=== PATIENT | female | born 1975 | race Caucasian/White ===

== ENCOUNTER 2017-04-17 16:29 | Emergency (ER) | payer MEDICAID ==
[~2017-04-17] VITALS: Wt 83.5 kg
[~2017-04-17 16:29] MED LIST: HYDR-3498 PO; ZOF8 PO
[2017-04-17] MEDS ORDERED: SOD CHLORIDE 0.9% 1,000 ML IV STA (17:04)
[2017-04-17] MEDS ORDERED: ONDANSETRON 4 MG INJ IV STA (17:04)
[2017-04-17] MEDS ORDERED: morphine 4 MG/ML VIAL IV STA (17:04)
[2017-04-17 17:37] LABS: ADD UMIC YES; URINE BILIRUBIN (Dip) NEGATIVE (NEGATIVE); URINE BLOOD (Dip) 3+ (NEGATIVE); URINE COLOR YELLOW (YELLOW); URINE GLUCOSE (Dip) NEGATIVE (NEGATIVE); URINE KETONES (Dip) NEGATIVE (NEGATIVE); URINE LEUKOCYTE ESTERASE (Dip) 1+ (NEGATIVE); URINE NITRITE (Dip) NEGATIVE (NEGATIVE); URINE TOTAL PROTEIN (Dip) TRACE (NEGATIVE); URINE UROBILINOGEN (Dip) 1.0 E.U./dL (0.1-1.0)
[2017-04-17 17:42] LABS: ADD SCAN DIFF NO
[2017-04-17 17:43] LABS: BASOPHILS % 0.2 % (0.0-2.0); EOSINOPHILS # 0.2 10^3/ul (0.0-0.5); EOSINOPHILS % 1.5 % (0.0-7.0); HEMATOCRIT 41.3 % (37.0-47.0); HEMOGLOBIN 13.7 g/dl (12.0-16.0); LYMPHOCYTES # 1.8 10^3/ul (0.8-2.9); LYMPHOCYTES % 11.2 % (15.0-51.0); MEAN CORPUSCULAR HGB CONC 33.2 g/dl (32.0-37.0); MEAN CORPUSCULAR VOLUME 90.6 fl (82.0-101.0); MEAN PLATELET VOLUME 10.6 fl (7.4-10.4); MONOCYTE # 0.7 10^3/ul (0.3-0.9); MONOCYTES % 4.4 % (0.0-11.0); NEUTROPHIL # 13.4 10^3/ul (1.6-7.5); NEUTROPHILS % 82.2 % (39.0-77.0); PLATELET COUNT 278 10^3/UL (140-415); RED BLOOD COUNT 4.56 10^6/ul (4.20-5.40); RED CELL DISTRIBUTION WIDTH 14.6 % (11.5-14.5); WHITE BLOOD COUNT 16.2 10^3/ul (4.8-10.8)
[2017-04-17 17:59] LABS: BACTERIA,URINE MANY; SQUAMOUS EPITHELIAL CELL,UR MANY
[2017-04-17 18:03] LABS: ALBUMIN/GLOBULIN RATIO 1.23
[2017-04-17 18:04] LABS: CALCIUM 9.6 mg/dl (8.4-10.2); CREATININE 0.69 mg/dl (0.44-1.00); POTASSIUM 3.7 mmol/L (3.5-5.1)
[2017-04-17 18:05] LABS: ALBUMIN 4.7 g/dl (3.3-4.9); BILIRUBIN,INDIRECT 0.1 mg/dl (0-1.1); BILIRUBIN,TOTAL 0.1 mg/dl (0.2-1.3); TOTAL PROTEIN 8.5 g/dl (6.1-8.1)
--- NOTE | 2017-04-17 18:08 | ERD ---
ER Documentation Chief Complaint Date/Time DATE: 04/17/17 TIME: 18:05 Chief Complaint LEFT UPPER ABD PAIN, NAUSEA, ONSET 4 DAYS HPI Patient is a 41-year-old female with a past medical history of gallstones who presents to the ED with epigastric and right upper quadrant pain 4 days. She states that she has had this pain in the past and states that it is possibly due to her gallstones. She complains of nausea with no vomiting. Her last bowel movement was this morning. She states that the pain is a 10 out of 10. She has taken ibuprofen for her symptoms this morning. She denies headache or dizziness. Denies chest pain, cough, shortness of breath or difficulty breathing. Denies leg pain or leg swelling. Denies recent surgeries or recent travel. Denies fever or chills. ROS All systems reviewed and are negative except as per history of present illness. Medications Home Meds Active Scripts Ondansetron (Ondansetron Odt) 4 Mg Tab.rapdis, 4 MG PO Q6H Y for NAUSEA AND/OR VOMITING, #10 TAB Prov:MARIANNE KUNZ PA-C 04/17/17 Hydrocodone/Acetaminophen ([place] 5-325 Tablet) 1 Each Tablet, 1 TAB PO Q6H Y for PAIN, #7 TAB Prov:MARIANNE KUNZ PA-C 04/17/17 Nitrofurantoin Monohyd Macrocr* (Macrobid*) 100 Mg Capsr, 100 MG PO BID for 14 Days, CAP Prov:MARIANNE KUNZ PA-C 04/17/17 Ondansetron Hcl* (Zofran* ODT) 8 mg -ODT Tab.disper, 8 MG PO Q6 Y for NAUSEA AND /OR VOMITING, #10 TAB Prov:KRISTI CLOUD MD 09/22/15 Hydrocodone Bit-Acetaminophen* ([place]*) 5-325 Mg Tab, 1 TAB PO Q6 Y for PAIN, # 16 TAB Prov:KRISTI CLOUD MD 09/22/15 Allergies Allergies: Coded Allergies: No Known Drug Allergy (Verified Allergy, Unknown, 03/30/08) PMhx/Soc History of Surgery: No Anesthesia Reaction: No Hx Neurological Disorder: No Hx Respiratory Disorders: No Hx Cardiac Disorders: No Hx Psychiatric Problems: No Hx Miscellaneous Medical Probl: No Hx Alcohol Use: No Hx Substance Use: No Hx Tobacco Use: No Smoking Status: Never smoker FmHx Family History: No coronary disease, No diabetes, No other Physical Exam Vitals Vital Signs Date Time Temp Pulse Resp B/P Pulse Ox O2 Delivery O2 Flow Rate FiO2 04/17/17 19:21 98.3 72 16 128/63 100 Room Air 04/17/17 16:34 97.1 62 17 132/63 100 Physical Exam GENERAL: Well-developed, well-nourished female. Appears in mild distress. HEAD: Normocephalic, atraumatic. EYES: Pupils are equally reactive bilaterally. EOMs grossly intact. No conjunctival erythema. ENT: Moist mucous membranes. No uvula deviation. No kissing tonsils. No exudates. NECK: Supple. No lymphadenopathy or thyromegaly. No meningismus. negative kernig. negative brudinski. LUNG: Clear to auscultation bilaterally. No rhonchi, wheezing, rales or coarse breath sounds. HEART: Regular rate and rhythm. No murmurs, rubs or gallops. ABDOMEN: No scars, ecchymosis or rashes noted. Soft,and nondistended. Positive bowel sounds in all four quadrants. No rebound tenderness, no guarding. (-) McBurneys point tenderness. No CVA tenderness. tenderness in epigastric and ruq. BACK: No midline tenderness. Extremities: Equal pulses bilaterally. No peripheral clubbing, cyanosis or edema. No unilateral leg swelling. NEUROLOGIC: Alert and oriented. Moving all four extremities. 5/5 strength in all extremities. Normal speech. Steady gait. SKIN: Normal color. Warm and dry. No rashes or lesions. Capillary refill < 2 seconds Result Diagram: 04/17/17 1730 04/17/17 1730 Results 24 hrs Laboratory Tests Test 04/17/17 17:10 04/17/17 17:30 Urine Color YELLOW Urine Clarity SLIGHTLY CLOUDY Urine pH 6.5 Urine Specific [place] 1.020 Urine Ketones NEGATIVE Urine Nitrite NEGATIVE Urine Bilirubin NEGATIVE Urine Urobilinogen 1.0 E.U./dL Urine Leukocyte Esterase 1+ Urine Microscopic RBC 10-25/HPF Urine Microscopic WBC 10-25/HPF Urine Squamous Epithelial Cells MANY Urine Bacteria MANY Urine Hemoglobin 3+ Urine Glucose NEGATIVE% Urine Total Protein TRACE White Blood Count 16.210^3/ul Red Blood Count 4.5610^6/ul Hemoglobin 13.7g/dl Hematocrit 41.3% Mean Corpuscular Volume 90.6fl Mean Corpuscular Hemoglobin 30.0pg Mean Corpuscular Hemoglobin Concent 33.2g/dl Red Cell Distribution Width 14.6% Platelet Count 33047^3/UL Mean Platelet Volume 10.6fl Neutrophils % 82.2% Lymphocytes % 11.2% Monocytes % 4.4% Eosinophils % 1.5% Basophils % 0.2% Nucleated Red Blood Cells % 0.0/100WBC Neutrophils # 13.410^3/ul Lymphocytes # 1.810^3/ul Monocytes # 0.710^3/ul Eosinophils # 0.210^3/ul Basophils # 0.010^3/ul Nucleated Red Blood Cells # 0.010^3/ul Sodium Level 140mmol/L Potassium Level 3.7mmol/L Chloride Level 102mmol/L Carbon Dioxide Level 28mmol/L Anion Gap 14 Blood Urea Nitrogen 15mg/dl Creatinine 0.69mg/dl Glucose Level 133mg/dl Calcium Level 9.6mg/dl Total Bilirubin 0.1mg/dl Direct Bilirubin 0.00mg/dl Indirect Bilirubin 0.1mg/dl Aspartate Amino Transf (AST/SGOT) 136IU/L Alanine Aminotransferase (ALT/SGPT) 140IU/L Alkaline Phosphatase 108IU/L Total Protein 8.5g/dl Albumin 4.7g/dl Globulin 3.80g/dl Albumin/Globulin Ratio 1.23 Lipase 67U/L Current Medications Medications (Trade) Dose Ordered Sig/Khris Route PRN Reason Start Time Stop Time Status Last Admin Dose Admin Sodium Chloride (NS) 1,000 ml @ 1,000 mls/hr Q1H STAT IV 04/17/17 17:04 04/17/17 18:03 DC 04/17/17 17:22 Morphine Sulfate (morphine) 4 mg ONCE STAT IV 04/17/17 17:04 04/17/17 17:06 DC 04/17/17 17:22 Ondansetron HCl (Zofran Inj) 4 mg ONCE STAT IV 04/17/17 17:04 04/17/17 17:06 DC 04/17/17 17:22 Procedures/MDM ER COURSE: I kept the patient and/or family informed of laboratory and diagnostic imaging results throughout the emergency room course. EKG, MONITORS, & DIAGNOSTIC IMAGING: [place] [id number] Radiology Main Line: [phone] DIAGNOSTIC IMAGING REPORT Patient: CLARA SUAREZ : 1975 Age: 41 Sex: F MR #: [id number] DOS: 04/17/17 1704 Ordering MD: MARIANNE KUNZ PA-C Location: [facility] Room/Bed: PROCEDURE: US Abdomen. CLINICAL INDICATION: abdominal pain TECHNIQUE: Multiple real-time images were acquired of the patient's right upper quadrant abdomen and retroperitoneum utilizing a high resolution transducer. COMPARISON: 09/22/2015 FINDINGS: The liver demonstrates normal echogenicity. The liver is normal in size and no focal solid lesions are seen. The liver measures 15.6 cm in length. The portal vein is patent with normal direction of flow. No intrahepatic biliary dilatation is seen. Calcified gallstones are identified within the gallbladder. There is no pericholecystic fluid or gallbladder wall thickening. The common bile duct measures 5 mm in maximal dimension. The visualized portions of the pancreas are unremarkable. The tail of the pancreas is not seen. No free fluid is identified. The right kidney is normal in size, and demonstrate normal echogenicity and cortical thickness. The right kidney measures 12.8 cm in long dimension. There is no evidence of hydronephrosis. There are no kidney stones. RPTAT: AA IMPRESSION: Cholelithiasis. No evidence of gallbladder wall thickening or pericholecystic fluid. .Agustin Carranza MD, Date Time Electronically viewed and signed by .Agustin Carranza MD, MD on 04/17/2017 18: 28 .S/ CC: MARIANNE KUNZ PA-C MEDICATIONS: Feeding, Zofran, fluids. Tolerated well with no adverse reaction. LAB INTERPRETATION: CBC showed no evidence of severe anemia, elevated white count with a neutrophil shift. CMP showed no evidence of electrolyte abnormalities, severe acidosis, alkalosis, renal failure, or liver disease. Patient does have slightly elevated ALT and AST. Lipase showed no evidence of acute pancreatitis. UA UA showed no nitrites or hematuria, 1+ leukocytes. Urine test was negative. MEDICAL DECISION MAKING: This is a 41-year-old female with a past medical history of gallstone who presents with epigastric and right upper quadrant pain 4 days. Vital signs were reviewed. Patient is afebrile. Patient is not hypoxic. I consulted with Dr. Gutierrez regarding this patient who reviewed all imaging studies and laboratory studies. Patient has cholelithiasis. I have low suspicion for cholecystitis. Ultrasound is read by radiologist shows cholelithiasis, no evidence of gallbladder wall thickening or pericholecystic fluid. Patient is afebrile. Patient does not have CVA tenderness. Patient does not have elevated bilirubin or elevated alkaline phosphatase. I have low suspicion for choledocholithiasis. Low suspicion for ACS, AAA, perforated ulcer, bowel obstruction, cholecystitis, choledocholithiasis, cholangitis, pancreatitis, hepatic abscess, appendicitis, diverticulitis, gastroenteritis, hepatitis. I reexamined patient after administration of medication, stated improvement in symptoms. Low suspicion for ovarian torsion, PID, tuboovarian abscess, ectopic , bowel obstruction, pyelonephritis, appendicitis, cervicitis, septic . Patient does not need to be admitted at this time. Patient is stable for outpatient therapy. Patient does not show signs of dehydration. I explained to patient to have close follow-up and return in 8 hours for reevaluation. DISCHARGE: At this time, patient is stable for discharge and outpatient management with no new complaints during the ER course. Patient was sent home with copy of all imaging report and laboratory studies, [place] for pain, Zofran for nausea and Macrobid for cystitis. Return in 8-12 hours for reevaluation. Patient will be discharged home with instructions to recheck for new or worsening symptoms such as fever, nausea, weakness, LOC and to follow up with primary care in the next 1 -2 days. Patient was advised to return to the ER for any new or worsening symptoms. Plan was discussed and patient and/or family understands and agrees. Home instructions were given. Departure Diagnosis: Primary Impression: Gallstones Condition: Stable MARIANNE KUNZ PA-C April 17, 2017 18:08
--- NOTE | 2017-04-17 18:29 | RADRPT ---
PROCEDURE: US Abdomen. CLINICAL INDICATION: abdominal pain TECHNIQUE: Multiple real-time images were acquired of the patient's right upper quadrant abdomen a nd retroperitoneum utilizing a high resolution transducer. COMPARISON: 09/22/2015 FINDINGS: The liver demonstrates normal echogenicity. The liver is normal in size and no focal solid lesions are seen. The liver measures 15.6 cm in length. The portal vein is patent with normal direction of f low. No intrahepatic biliary dilatation is seen. Calcified gallstones are identified within the gallbladder. There is no pericholecystic fluid or ga llbladder wall thickening. The common bile duct measures 5 mm in maximal dimension. The visualized portions of the pancreas are unremarkable. The tail of the pancreas is not seen. No free fluid is identified. The right kidney is normal in size, and demonstrate normal echogenicity and cortical thickness. The right kidney measures 12.8 cm in long dimension. There is no evidence of hydronephrosis. There are no kidney stones. RPTAT: AA IMPRESSION: Cholelithiasis. No evidence of gallbladder wall thickening or pericholecystic fluid. .Agustin Carranza MD, MD Date Time Electronically viewed and signed by .Agustin Carranza MD, MD on 04/17/2017 18:28 .S/
[2017-04-17] MEDS ORDERED: HYDR-906 PO (18:53)
[2017-04-17] MEDS ORDERED: NITR-58 PO (18:53)
[2017-04-17] MEDS ORDERED: ONDA4TAB14 PO (18:54)
[2017-04-17 19:21] VITALS: BP 128/63; PULSE 72; RESP 16; TEMP 98.3
== END 2017-04-17 19:21 | disposition home or self-care (01) ==
LOC: FTE 16:29
DX: K80.20 Calculus of gallbladder without cholecystitis without obstruction (principal); R11.0 Nausea
CPT/HCPCS: 76705; 80053; 81001; 83690; 85025; 96374; 96375; J2270; J2405; J7030; Z7502